=== PATIENT | female | born 1970 | race Caucasian/White ===

== ENCOUNTER 2019-07-19 16:35 | Emergency (ER) | payer OTHER, SELFPAY ==
[2019-07-19 16:50] VITALS: BP 133/103; PULSE 96; RESP 16; TEMP 37.1; O2SAT 98
--- NOTE | 2019-07-19 17:18 | ED.UPPEXIN ---
HPI - Extremity Injury (Upper) General Chief Complaint: Extremity Injury, Upper Stated Complaint: right arm pain Time Seen by Provider: 07/19/19 16:58 Source: patient and RN notes reviewed Mode of arrival: ambulatory Limitations: no limitations History of Present Illness HPI narrative: Patient presents today complaining of right elbow pain since May. History of right-sided carpal tunnel. Denies numbness or tingling in the arm or hand. Pain increases with movement of the elbow. Denies injury. She has tried Tylenol and ibuprofen at home without relief. MD complaint: injury to: right and elbow Related Data Home Medications Medication Instructions Recorded Confirmed amoxicillin 500 mg PO DIRECTED 07/19/19 07/19/19 aspirin 81 mg PO DAILY 07/19/19 07/19/19 atorvastatin 20 mg PO DAILY 07/19/19 07/19/19 cholecalciferol (vitamin D3) 25 mcg PO DAILY 07/19/19 07/19/19 clindamycin HCl 300 mg PO DAILY 07/19/19 07/19/19 hydrocodone-acetaminophen 1 tablet PO DAILY 07/19/19 07/19/19 lisinopril 40 mg PO DAILY 07/19/19 07/19/19 Allergies Allergy/AdvReac Type Severity Reaction Status Date / Time levofloxacin Allergy Mild Swelling Verified 07/19/19 16:58 latex Allergy Unknown Redness of Verified 07/19/19 16:58 Skin Penicillins Allergy Unknown Swelling Verified 07/19/19 16:58 Quinolones AdvReac Mild Swelling Verified 07/19/19 16:58 PAPER TAPE Allergy Mild Hives Uncoded 07/19/19 16:58 Wool. Allergy Mild Swelling Uncoded 07/19/19 16:58 TAPE Allergy Unknown Redness of Uncoded 07/19/19 16:58 Skin Review of Systems Review of Systems: Narrative: CONSTITUTIONAL: Denies body aches, fever, chills, or sweats. EYES: Denies visual changes, redness, or discharge. ENT: Denies rhinorrhea, congestion, sore throat, or otalgia. CARDIOVASCULAR: Denies chest pain, palpitations, or edema. RESPIRATORY: Denies cough or dyspnea. GASTROINTESTINAL: Denies abdominal pain, nausea, vomiting, or diarrhea. GENITOURINARY: Denies dysuria or hematuria. SKIN: Denies rash, itching, or wounds. MUSCULOSKELETAL: Denies back pain, or myalgia.+ Right elbow pain NEUROLOGIC: Denies headache, numbness, tingling, or weakness. PSYCH: Denies depression or anxiety. [facility] Past Medical History Medical History (Updated 07/19/19 @ 18:16 by Isabel Sandoval, PROSTHETICS LAB TECHNICIAN, ) Back pain Diabetes Comments At time of signature, I have reviewed and agree with nursing past medical, surgical, social and family history unless otherwise noted. Please see nursing chart for further information. There is no relevant family history pertinent to the presenting complaint Exam Narrative: Exam Narrative: GENERAL: Well-appearing, well-nourished, and in no acute distress. HEAD: Normocephalic, atraumatic. EYES: EOMI. No redness or drainage. Conjunctivae normal. ENT: Mucous membranes pink and moist. NECK: Normal AROM. CHEST: No respiratory distress. EXTREMITIES: Right elbow: Soft tissue tenderness laterally. No bony tenderness of the elbow. Soft tissue tenderness extends down the forearm. No edema, ecchymosis, or erythema noted. Distal sensation intact. Capillary refill normal. Radial pulse normal. Slightly decreased AROM of the elbow due to pain. SKIN: Warm, dry, no rash. Capillary refill normal. Normal skin turgor. NEURO: No focal deficits. Alert and oriented x3. Gait steady. PSYCH: Normal affect. No signs of depression or anxiety. Course Vital Signs Vital signs: Vital Signs Temperature 98.8 F 07/19/19 16:50 Pulse Rate 96 07/19/19 16:50 Respiratory Rate 16 07/19/19 16:50 Blood Pressure 133/103 H 07/19/19 16:50 Pulse Oximetry 98 07/19/19 16:50 Temperature 98.8 F 07/19/19 16:50 Pulse Rate 96 07/19/19 16:50 Respiratory Rate 16 07/19/19 16:50 Blood Pressure 133/103 H 07/19/19 16:50 Pulse Oximetry 98 07/19/19 16:50 Reviewed. Pt has been instructed to follow up with her PCP regarding her elevated blood pressure today. MDM - Ext
== END 2019-07-19 17:21 | disposition home or self-care (01) ==
PROVIDERS: Emergency Provider Nurse Practitioner
DX: M77.9 Enthesopathy, unspecified (principal); I25.10 Atherosclerotic heart disease of native coronary artery without angina pectoris; I10 Essential (primary) hypertension; J44.9 Chronic obstructive pulmonary disease, unspecified; E11.9 Type 2 diabetes mellitus without complications
CPT/HCPCS: 99213; G0463

== ENCOUNTER 2019-12-24 12:43 | Outpatient (CLI) | payer OTHER, SELFPAY | END 2019-12-24 12:44 | disposition home or self-care (01) | LOC: ANHAUDIO 12:44 | PROVIDERS: Visit Provider Otolaryngology | DX: H69.82 Other specified disorders of Eustachian tube, left ear (principal); H90.3 Sensorineural hearing loss, bilateral | CPT/HCPCS: 92557; 92567 ==

== ENCOUNTER 2020-01-25 14:02 | Outpatient (RCR) | payer OTHER, SELFPAY | END 2020-01-25 23:59 | disposition home or self-care (01) | LOC: ANHAUDIO 14:02 | PROVIDERS: Referring Provider Otolaryngology; Visit Provider Otolaryngology | DX: Z46.1 Encounter for fitting and adjustment of hearing aid (principal) | CPT/HCPCS: V5160; V5261 ==

== ENCOUNTER 2020-02-24 15:23 | Outpatient (CLI) | payer OTHER, SELFPAY ==
--- NOTE | ~2020-02-24 | CT_ITS ---
EXAMINATION: CT sinus wo con DATE: 02/24/2020 15:48 INDICATION: Postnasal drip TECHNIQUE: Computed tomography (CT) of the paranasal sinuses was performed without intravenous contra st. Coronal reconstructions were obtained. Iterative reconstruction technique was employed. The dose- length product was 318.31 mGy-cm. COMPARISON: None FINDINGS: There is prominent leftward bowing of the nasal septum along with some asymmetry to the nasal bones w hich could be developmental or sequela of old trauma. No recent-appearing maxillofacial fractures. Mi ld mucoperiosteal thickening the bilateral ethmoid sinuses. The bilateral frontal, sphenoid and right maxillary sinuses are clear. Bilateral ostiomeatal units are patent. Small defects in the medial wal ls of both maxillary sinuses likely representing change of prior antral window procedures. The orbits are normal. Bilateral mastoid air cells and middle ear cavities are clear. Prominent mucous retentio n cyst at the inferior left maxillary sinus. IMPRESSION: 1. New scattered cysts in the left maxillary sinus and mild mucoperiosteal thickening the bilateral e thmoid sinuses. 2. Leftward deviation of the nasal septum and similar asymmetry to the nasal bones which could be eit her developmental or sequela of old trauma. Reviewed, dictated and finalized at location A. [employer] IMPRESSION: 1. New scattered cysts in the left maxillary sinus and mild mucoperiosteal thic kening the bilateral ethmoid sinuses. 2. Leftward deviation of the nasal septum and similar asymmetry to the nasal ryan basil which could be either developmental or sequela of old trauma.
== END 2020-02-24 15:24 | disposition home or self-care (01) ==
LOC: ANHIMG 15:31
PROVIDERS: Visit Provider Otolaryngology
DX: J32.9 Chronic sinusitis, unspecified (principal); R09.81 Nasal congestion; R09.82 Postnasal drip; J34.2 Deviated nasal septum
CPT/HCPCS: 70486

== ENCOUNTER 2020-03-30 09:05 | Emergency (ER) | payer OTHER, SELFPAY ==
--- NOTE | ~2020-03-30 | XR_ITS ---
XR skull min 4V DATE: 03/30/2020 09:37 INDICATION: Left temporal injury. Headache. TECHNIQUE: 4 views COMPARISON: None FINDINGS: Normal sella turcica. No skull fracture or bone destruction is evident. No abnormal intracr anial calcification. The paranasal sinuses and mastoid air cells appear normally developed and aerate d with the exception of large mucous retention cyst or polyp of the lower left maxillary sinus. Normal alignment of the upper cervical spine (C1-C5). IMPRESSION: No skull fracture Reviewed, dictated and finalized at location B. [employer] INTERN IMPRESSION: No skull fracture
[2020-03-30 09:20] VITALS: BP 140/95; PULSE 111; RESP 18; TEMP 36.7; O2SAT 97
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
== END 2020-03-30 11:10 | disposition home or self-care (01) ==
PROVIDERS: Emergency Provider Emergency Medicine
DX: S09.90XA Unspecified injury of head, initial encounter (principal); E11.9 Type 2 diabetes mellitus without complications; W22.09XA Striking against other stationary object, initial encounter
CPT/HCPCS: 70260; 99283

== ENCOUNTER 2020-05-04 11:20 | Emergency (ER) | payer OTHER, SELFPAY ==
[2020-05-04 11:28] VITALS: BP 136/91; PULSE 88; RESP 16; TEMP 36.4; O2SAT 100
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
[2020-05-04] MEDS: NAPROXEN 500 MG TABLET PO (13:08)
== END 2020-05-04 13:28 | disposition home or self-care (01) ==
PROVIDERS: Emergency Provider Emergency Medicine; PCP Family Medicine
DX: G56.21 Lesion of ulnar nerve, right upper limb (principal); E11.9 Type 2 diabetes mellitus without complications
CPT/HCPCS: 99283; A9270

== ENCOUNTER 2020-05-12 14:09 | Outpatient (CLI) | payer OTHER, SELFPAY ==
--- NOTE | ~2020-05-12 | MM_ITS ---
EXAMINATION: MM screening abel BI w daria HISTORY: Screening mammogram, family history of breast cancer in her mother. TECHNIQUE: Craniocaudal and mediolateral oblique 3-D tomosynthesis images were obtained and synthetic 2-D images were generated. CAD analysis was submitted and interpreted. COMPARISON: No prior mammogram is available for comparison at this institution. BREAST PARENCHYMAL COMPOSITION: There are scattered areas of fibroglandular density. FINDINGS: RIGHT BREAST: There is no evidence of suspicious mass, calcification, or architectural distortion to suggest malignancy. LEFT BREAST: Asymmetry is present in the posterior third of the outer breast on the craniocaudal view . IMPRESSION: 1. Left breast asymmetry on the craniocaudal view which may represent the patient's baseline however no comparison is currently available. 2. Comparison with prior mammograms is necessary. BI-RADS Category 0: Incomplete: Needs comparison with prior mammograms. Reviewed, dictated and finalized at location A. IMPRESSION: 1. Left breast asymmetry on the craniocaudal view which may represent the patie nt's baseline however no comparison is currently available. 2. Comparison with prior mammograms is necessary. BI-RADS Category 0: Incomplete: Needs comparison with prior mammograms.
== END 2020-05-12 14:10 | disposition home or self-care (01) ==
LOC: ANHIMG 14:13
PROVIDERS: PCP Family Medicine; Visit Provider Nurse Practitioner
DX: Z12.31 Encounter for screening mammogram for malignant neoplasm of breast (principal); R92.8 Other abnormal and inconclusive findings on diagnostic imaging of breast
CPT/HCPCS: 77063; 77067

== ENCOUNTER 2020-10-05 12:41 | Emergency (ER) | payer OTHER, SELFPAY ==
[2020-10-05 13:02] VITALS: BP 108/76; PULSE 88; RESP 20; TEMP 36.8; O2SAT 99
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
== END 2020-10-05 14:03 | disposition home or self-care (01) ==
PROVIDERS: Emergency Provider Nurse Practitioner; PCP Nurse Practitioner
DX: H66.006 Acute suppurative otitis media without spontaneous rupture of ear drum, recurrent, bilateral (principal); E11.9 Type 2 diabetes mellitus without complications; K21.9 Gastro-esophageal reflux disease without esophagitis; E78.00 Pure hypercholesterolemia, unspecified; J45.909 Unspecified asthma, uncomplicated
CPT/HCPCS: 99213; G0463

== ENCOUNTER 2020-10-11 16:57 | Emergency (ER) | payer OTHER, SELFPAY ==
--- NOTE | ~2020-10-11 | XR_ITS ---
EXAMINATION: XR toe 2nd LT min 2V DATE: 10/11/2020 18:21 INDICATION: Left second toe pain. TECHNIQUE: 4 views of left second toe were obtained. COMPARISON: Left foot radiographs 09/09/2010 FINDINGS: There is moderate hallux valgus. No fracture. There is mild osteoarthritis of first and sec ond metatarsophalangeal joints and first interphalangeal joint. IMPRESSION: 1. Mild polyarticular osteoarthritis. 2. Moderate hallux valgus. Reviewed, dictated and finalized at location A.
[2020-10-11 17:07] VITALS: BP 144/89; PULSE 90; RESP 16; TEMP 36.8; O2SAT 98
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
== END 2020-10-11 18:43 | disposition home or self-care (01) ==
PROVIDERS: Emergency Provider Nurse Practitioner; PCP Podiatrist Foot & Ankle Surgery
DX: S93.505A Unspecified sprain of left lesser toe(s), initial encounter (principal); S96.912A Strain of unspecified muscle and tendon at ankle and foot level, left foot, initial encounter; V49.9XXA Car occupant (driver) (passenger) injured in unspecified traffic accident, initial encounter; E11.9 Type 2 diabetes mellitus without complications; K21.9 Gastro-esophageal reflux disease without esophagitis
CPT/HCPCS: 73660; 99213; G0463

== ENCOUNTER 2020-10-30 16:55 | Emergency (ER) | payer OTHER, SELFPAY ==
[2020-10-30 17:16] VITALS: BP 115/83; PULSE 98; RESP 18; TEMP 36.8; O2SAT 98
== END 2020-10-30 18:25 | disposition left against medical advice (07) ==
LOC: EXPCOLL 17:00
PROVIDERS: Emergency Provider Registered Nurse; PCP Family Medicine
DX: Z53.21 Procedure and treatment not carried out due to patient leaving prior to being seen by health care provider (principal)
CPT/HCPCS: 99199

== ENCOUNTER 2021-03-07 16:44 | Emergency (ER) | payer OTHER, SELFPAY ==
--- NOTE | 2021-03-07 16:47 | ED.EAR ---
HPI - Ear Problem General Chief complaint: Ear Stated complaint: jerrod ear pain Time Seen by Provider: 03/07/21 16:57 Source: patient and RN notes reviewed Mode of arrival: ambulatory Limitations: no limitations History of Present Illness HPI Narrative: 50-year-old female presents with concern for bilateral ear pain. Reports history of problems with her ears, she is followed by ENT. Reports over several days the cold wind has caused her to have ear pain. She reports only mild nasal congestion and rhinorrhea which is chronic. She reports she had a negative Covid test. She denies fever, hearing changes. MD Complaint: ear pain Related Data Home Medications Medication Instructions Recorded Confirmed atorvastatin 20 mg PO DAILY 07/19/19 03/07/21 cholecalciferol (vitamin D3) 25 mcg PO DAILY 07/19/19 03/07/21 lisinopril 40 mg PO DAILY 07/19/19 03/07/21 Allergies Allergy/AdvReac Type Severity Reaction Status Date / Time meloxicam Allergy Intermediate mouth dry Verified 03/07/21 16:47 and stomach pain metformin Allergy Intermediate dry mouth Verified 03/07/21 16:47 and stomach pain levofloxacin Allergy Mild Swelling Verified 03/07/21 16:47 latex Allergy Unknown Redness of Verified 03/07/21 16:47 Skin Penicillins Allergy Unknown Swelling Verified 03/07/21 16:47 Quinolones AdvReac Mild Swelling Verified 03/07/21 16:47 PAPER TAPE Allergy Mild Hives Uncoded 03/07/21 16:47 Wool. Allergy Mild Swelling Uncoded 03/07/21 16:47 TAPE Allergy Unknown Redness of Uncoded 03/07/21 16:47 Skin Review of Systems Review of Systems: CONSTITUTIONAL: Denies malaise, chills, sweats, or fever. EYES: Denies visual changes, redness, or discharge. ENT: Reports mild rhinorrhea, congestion. Denies sinus pain, and sore throat. Reports bilateral ear pain CARDIOVASCULAR: Denies chest pain, palpitations, or edema. RESPIRATORY: Denies cough. Denies dyspnea. GASTROINTESTINAL: Denies abdominal pain, nausea, vomiting, diarrhea SKIN: Denies rash or itching. MUSCULOSKELETAL: Denies myalgia. NEUROLOGIC: Denies headache. All systems reviewed & are unremarkable except as noted in HPI and below PMFSH Past Medical History Medical History Back pain Diabetes GERD (gastroesophageal reflux disease) Family History Family History Other Diabetes mellitus Social History Social History Smoking status: Never smoker Second hand tobacco smoke exposure: No Alcohol intake: former Substance use: never Gender identity (if verbalized by the patient): Female Comments At time of signature, agree with nursing past medical, surgical, social and family history. There is no relevant family history pertinent to the presenting complaint Exam Narrative: GENERAL: Well-appearing, well-nourished, and in no acute distress. HEAD: Normocephalic EYES: PERRLA, conjunctivae clear ENT: Nares clear. Mucous membranes moist. TM pearly zelaya with dull light reflex bilaterally; mild tragal tenderness bilaterally without purulent drainage. Oropharynx not erythematous without lesions. Tonsils not enlarged and without exudate, no drooling, no hoarseness, no trismus, uvula midline. NECK: Supple. No lymphadenopathy CHEST: Clear to auscultation, breath sounds equal. No wheezing, rhonchi, rales, or stridor. No respiratory distress, speaks in full sentences. HEART: Regular rate and rhythm. No murmur heard. SKIN: Warm, dry, no rash. NEURO: Alert and oriented x3. PSYCH: Normal mood and affect Course Course Emergency Course: Patient is aware of diagnosis, understands and agrees to treatment plan. Anticipatory guidance given. Patient agrees to follow-up as directed and is aware of reasons to seek care at the emergency department. Portions of this record may have been created with
[2021-03-07 16:57] VITALS: BP 133/90; PULSE 87; RESP 16; TEMP 36.6; O2SAT 98
== END 2021-03-07 17:10 | disposition home or self-care (01) ==
PROVIDERS: Emergency Provider Nurse Practitioner
DX: H60.503 Unspecified acute noninfective otitis externa, bilateral (principal); E11.9 Type 2 diabetes mellitus without complications; K21.9 Gastro-esophageal reflux disease without esophagitis
CPT/HCPCS: 99213; G0463

== ENCOUNTER 2021-07-23 13:15 | Emergency (ER) | payer OTHER, SELFPAY ==
--- NOTE | ~2021-07-23 | XR_ITS ---
XR thoracic spine 3V DATE: 07/23/2021 14:04 INDICATION: Injury, pain TECHNIQUE: AP and lateral views, swimmer's projection COMPARISON: None FINDINGS: No fracture or dislocation or bone destruction. The thoracic pedicles are intact. No parasp inal soft tissue thickening. IMPRESSION: Negative Reviewed, dictated and finalized at location A. IMPRESSION: Negative
[2021-07-23 13:27] VITALS: BP 135/79; PULSE 96; RESP 16; TEMP 37.1; O2SAT 99
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
== END 2021-07-23 14:37 | disposition home or self-care (01) ==
PROVIDERS: Emergency Provider Nurse Practitioner Family
DX: S29.012A Strain of muscle and tendon of back wall of thorax, initial encounter (principal); W18.40XA Slipping, tripping and stumbling without falling, unspecified, initial encounter; E11.9 Type 2 diabetes mellitus without complications; K21.9 Gastro-esophageal reflux disease without esophagitis
CPT/HCPCS: 72072; 99213; G0463

== ENCOUNTER 2021-08-09 12:12 | Emergency (ER) | payer OTHER, SELFPAY ==
--- NOTE | 2021-08-09 12:19 | ED.URI ---
HPI - URI/Sore Throat General Chief Complaint: Upper Respiratory Infection Stated Complaint: sinus pressure,ear pressure Time Seen by Provider: 08/09/21 12:20 Source: patient and RN notes reviewed Mode of arrival: ambulatory Limitations: no limitations History of Present Illness HPI Narrative: 51-year-old female presents with concern for on and off sinus congestion, pressure, drainage for more than 2 weeks, 1-1/2-week history of ear pain and pressure. Reports she is taken multiple [id number] cold and flu medicines without relief of symptoms. Reports she missed work today. She denies fever, body aches, chills, sweats, cough, shortness of breath. MD elicited complaint: rhinorrhea, nasal congestion and other (Ear fullness) Related Data Home Medications Medication Instructions Recorded Confirmed atorvastatin 20 mg tablet 20 mg PO DAILY 07/19/19 07/23/21 cholecalciferol (vitamin D3) 25 25 mcg PO DAILY 07/19/19 07/23/21 mcg (1,000 unit) tablet lisinopril 40 mg tablet 40 mg PO DAILY 07/19/19 07/23/21 amitriptyline 25 mg tablet 1 tablet PO HS 07/23/21 07/23/21 ammonium lactate 12 % lotion 1 ea topical DAILY 07/23/21 07/23/21 furosemide 20 mg tablet 1 tablet PO DAILY 07/23/21 07/23/21 nateglinide 120 mg tablet 1 tablet PO TID 07/23/21 07/23/21 Allergies Allergy/AdvReac Type Severity Reaction Status Date / Time meloxicam Allergy Intermediate mouth dry Verified 07/23/21 13:38 and stomach pain metformin Allergy Intermediate dry mouth Verified 07/23/21 13:38 and stomach pain levofloxacin Allergy Mild Swelling Verified 07/23/21 13:38 latex Allergy Unknown Redness of Verified 07/23/21 13:38 Skin Penicillins Allergy Unknown Swelling Verified 07/23/21 13:38 Quinolones AdvReac Mild Swelling Verified 07/23/21 13:38 PAPER TAPE Allergy Mild Hives Uncoded 07/23/21 13:38 Wool. Allergy Mild Swelling Uncoded 07/23/21 13:38 TAPE Allergy Unknown Redness of Uncoded 07/23/21 13:38 Skin Review of Systems Review of Systems: CONSTITUTIONAL: Denies malaise, chills, sweats, or fever. EYES: Denies visual changes, redness, or discharge. ENT: Reports rhinorrhea, congestion, sinus pain, otalgia CARDIOVASCULAR: Denies chest pain, palpitations, or edema. RESPIRATORY: Denies cough. Denies dyspnea. GASTROINTESTINAL: Denies abdominal pain, nausea, vomiting, diarrhea SKIN: Denies rash or itching. MUSCULOSKELETAL: Denies myalgia. NEUROLOGIC: Denies headache. All systems reviewed & are unremarkable except as noted in HPI and below PMFSH Past Medical History Medical History Back pain Diabetes GERD (gastroesophageal reflux disease) Family History Family History Other Diabetes mellitus Social History Social History Smoking status: Never smoker Second hand tobacco smoke exposure: No Alcohol intake: former Substance use: never Gender identity (if verbalized by the patient): Female Comments At time of signature, agree with nursing past medical, surgical, social and family history. There is no relevant family history pertinent to the presenting complaint Exam Narrative: GENERAL: Well-appearing, well-nourished, and in no acute distress. HEAD: Normocephalic EYES: PERRLA, conjunctivae clear ENT: Nares clear, turbinates edematous and erythematous, sinus tenderness. Mucous membranes moist. TM pearly zelaya with dull light reflex bilaterally; left tragal tenderness with EAC erythema and edema Oropharynx not erythematous without lesions. Tonsils not enlarged and without exudate, no drooling, no hoarseness, no trismus, uvula midline. NECK: Supple. No lymphadenopathy CHEST: Clear to auscultation, breath sounds equal. No wheezing, rhonchi, rales, or stridor. No respiratory distress, speaks in full sentences. HEART: Regular rate and rhythm
[2021-08-09 12:21] VITALS: BP 133/85; PULSE 88; RESP 16; TEMP 36.7; O2SAT 97
== END 2021-08-09 12:38 | disposition home or self-care (01) ==
PROVIDERS: Emergency Provider Nurse Practitioner; PCP Family Medicine
DX: J01.90 Acute sinusitis, unspecified (principal); H60.92 Unspecified otitis externa, left ear; E11.9 Type 2 diabetes mellitus without complications; K21.9 Gastro-esophageal reflux disease without esophagitis
CPT/HCPCS: 99213; G0463

== ENCOUNTER 2021-09-06 12:54 | Emergency (ER) | payer OTHER, SELFPAY ==
--- NOTE | ~2021-09-06 | XR_ITS ---
EXAMINATION: XR shoulder RT min 2V DATE: 09/06/2021 13:38 INDICATION: Shoulder pain, numbness and tingling TECHNIQUE: AP internally and externally rotated, AP oblique externally rotated and transscapular Y vi ews of the right shoulder were obtained. COMPARISON: None FINDINGS: Normal alignment. No fracture. Glenohumeral joint is normal. Mild acromioclavicular osteoarthritis. Small calcified nodule at the right apex consistent with old granulomatous disease. Soft tissues are unremarkable. IMPRESSION: Mild right acromioclavicular osteoarthritis. Reviewed, dictated and finalized at location A.
--- NOTE | ~2021-09-06 | US_ITS ---
EXAMINATION: US venous doppler UE RT DATE: 09/06/2021 14:04 INDICATION: Right arm pain and swelling TECHNIQUE: Valdes scale images with and without compression and Doppler images of the right upper extre mity veins were obtained. COMPARISON: None. FINDINGS: The right internal jugular vein, subclavian vein, axillary vein, brachial veins, basilic vein, cephal ic vein, radial vein, and ulnar vein are patent. IMPRESSION: 1. Patent right upper extremity veins. No evidence of deep venous thrombosis. Reviewed, dictated and finalized at location A.
[2021-09-06 12:55] VITALS: BP 131/99; PULSE 92; RESP 16; TEMP 36.5; O2SAT 100
--- NOTE | 2021-09-06 13:56 | ED.UPPEXIN ---
HPI - Extremity Injury (Upper) General Chief Complaint: Extremity Injury, Upper Stated Complaint: Right shoulder and arm pain x 3-4 days Time Seen by Provider: 09/06/21 13:00 History of Present Illness HPI narrative: Patient is a 51-year-old female who presents ER with right arm and shoulder discomfort. She reports she injured her shoulder about 3 years ago and has been seen by her PCP and by an orthopedic surgeons office. And she denies having imaging. She reports occasionally she will get pain down her right arm that is worsened over the last 3 to 4 days. No known injury at this time. She feels like the pain is worse when she reaches forward to grab something. If she tries to lift a soda out of the console of her car causes her discomfort. It gives her tingling in the tips of her fingers. She also felt pulling on the back of her forearm and her shoulder. No neck pain. No chest pain or shortness of breath. No exertional component to her discomfort. Has not tried any pain medication. She does note that she had some swelling to her right hand this morning that has since resolved which was new. Related Data Home Medications Medication Instructions Recorded Confirmed atorvastatin 20 mg tablet 20 mg PO DAILY 07/19/19 07/23/21 cholecalciferol (vitamin D3) 25 25 mcg PO DAILY 07/19/19 07/23/21 mcg (1,000 unit) tablet lisinopril 40 mg tablet 40 mg PO DAILY 07/19/19 07/23/21 amitriptyline 25 mg tablet 1 tablet PO HS 07/23/21 07/23/21 ammonium lactate 12 % lotion 1 ea topical DAILY 07/23/21 07/23/21 furosemide 20 mg tablet 1 tablet PO DAILY 07/23/21 07/23/21 nateglinide 120 mg tablet 1 tablet PO TID 07/23/21 07/23/21 Allergies Allergy/AdvReac Type Severity Reaction Status Date / Time meloxicam Allergy Intermediate mouth dry Verified 09/06/21 13:17 and stomach pain metformin Allergy Intermediate dry mouth Verified 09/06/21 13:17 and stomach pain levofloxacin Allergy Mild Swelling Verified 09/06/21 13:17 latex Allergy Unknown Redness of Verified 09/06/21 13:17 Skin Penicillins Allergy Unknown Swelling Verified 09/06/21 13:17 Quinolones AdvReac Mild Swelling Verified 09/06/21 13:17 PAPER TAPE Allergy Mild Hives Uncoded 09/06/21 13:17 Wool. Allergy Mild Swelling Uncoded 09/06/21 13:17 TAPE Allergy Unknown Redness of Uncoded 09/06/21 13:17 Skin Review of Systems Review of Systems: All systems reviewed & are unremarkable except as noted in HPI and below Constitutional: Constitutional: Denies chills and Denies fever(s) Cardiovascular: Cardiovascular: Denies chest pain, Denies rapid heart rate and Denies radiating jaw, neck or arm pain Respiratory: Respiratory: Denies cough and Denies dyspnea Musculoskeletal: Musculoskeletal: Denies joint swelling Neurologic: Denies focal weakness and Denies numbness Comments: Tingling of fingertips right arm. [facility] Past Medical History Medical History Back pain Diabetes GERD (gastroesophageal reflux disease) Family History Family History Other Diabetes mellitus Social History Social History Smoking status: Never smoker Second hand tobacco smoke exposure: No Alcohol intake: former Substance use: never Gender identity (if verbalized by the patient): Female Exam Narrative: GENERAL: Well-appearing, well-nourished, and in no acute distress. HEAD: Normocephalic, atraumatic. CHEST: Clear to auscultation. No respiratory distress. HEART: Regular rate and rhythm. Normal peripheral pulses. EXTREMITIES: Focused exam of the right upper extremity reveals normal internal and external rotation. Patient does have discomfort at the right shoulder with internal rotation and placing arm to touch of the spine which range of motion is preserved. SKIN: Warm, dry, no rash.
== END 2021-09-06 14:47 | disposition home or self-care (01) ==
PROVIDERS: Emergency Provider Emergency Medicine; PCP Family Medicine
DX: M19.011 Primary osteoarthritis, right shoulder (principal); E11.9 Type 2 diabetes mellitus without complications; K21.9 Gastro-esophageal reflux disease without esophagitis
CPT/HCPCS: 73030; 93971; 99284

== ENCOUNTER 2021-11-07 11:16 | Emergency (ER) | payer OTHER, SELFPAY ==
[2021-11-07 11:26] VITALS: BP 138/79; PULSE 98; RESP 16; TEMP 36.7; O2SAT 99
--- NOTE | 2021-11-07 11:35 | ED.URI ---
HPI - URI/Sore Throat General Chief Complaint: Upper Respiratory Infection Stated Complaint: uri Time Seen by Provider: 11/07/21 11:30 Source: patient Mode of arrival: ambulatory Limitations: no limitations History of Present Illness HPI Narrative: Ms. Henriquez is a 51-year-old female patient presenting to the clinic today with complaints of sinus pressure and ear pain x4-5 days. She denies any fever or chills. She does have nasal congestion. She denies any known exposure to a COVID, flu, or strep MD elicited complaint: sore throat and nasal congestion Related Data Home Medications Medication Instructions Recorded Confirmed atorvastatin 20 mg tablet 20 mg PO DAILY 07/19/19 11/07/21 cholecalciferol (vitamin D3) 25 25 mcg PO DAILY 07/19/19 11/07/21 mcg (1,000 unit) tablet lisinopril 40 mg tablet 40 mg PO DAILY 07/19/19 11/07/21 amitriptyline 25 mg tablet 1 tablet PO HS 07/23/21 11/07/21 ammonium lactate 12 % lotion 1 ea topical DAILY 07/23/21 11/07/21 furosemide 20 mg tablet 1 tablet PO DAILY 07/23/21 11/07/21 nateglinide 120 mg tablet 1 tablet PO TID 07/23/21 11/07/21 Allergies Allergy/AdvReac Type Severity Reaction Status Date / Time meloxicam Allergy Intermediate mouth dry Verified 11/07/21 11:18 and stomach pain metformin Allergy Intermediate dry mouth Verified 11/07/21 11:18 and stomach pain levofloxacin Allergy Mild Swelling Verified 11/07/21 11:18 latex Allergy Unknown Redness of Verified 11/07/21 11:18 Skin Penicillins Allergy Unknown Swelling Verified 11/07/21 11:18 Quinolones AdvReac Mild Swelling Verified 11/07/21 11:18 PAPER TAPE Allergy Mild Hives Uncoded 11/07/21 11:18 Wool. Allergy Mild Swelling Uncoded 11/07/21 11:18 TAPE Allergy Unknown Redness of Uncoded 11/07/21 11:18 Skin Review of Systems Review of Systems: Pertinent positives per HPI. Patient denies any fever, chills, rash, visual changes, dizziness, shortness of breath, chest pain, palpitations, nausea, vomiting, diarrhea, constipation, abdominal pain, or any urinary issues. [facility] Past Medical History Medical History Back pain Diabetes GERD (gastroesophageal reflux disease) Family History Family History Other Diabetes mellitus Social History Social History Smoking status: Never smoker Second hand tobacco smoke exposure: No Alcohol intake: former Substance use: never Gender identity (if verbalized by the patient): Female Comments At the time of my signature, I reviewed and agree with the nursing past medical, surgical, social, and family history. There is no relevant family history pertinent to the patient complaint. Exam Narrative: General: Well-developed, well nourished, in no apparent distress Head: Normocephalic, atraumatic Eyes: Pupils equally round and reactive to light bilaterally, EOM intact, sclera and conjunctive clear, no discharge, lids normal Ears: TMs intact and clear, ear canals clear, no drainage, grossly hearing normal. Nose: Nares patent, no discharge, no inflammation, no sinus tenderness. Mouth: Oral pharynx without lesions or masses, good dentition, MMM. Neck: Supple, trachea midline, no enlargement of anterior or posterior cervical nodes, no thyroid masses or goiter palpable. Cardio: Regular rate and rhythm, s1 and s2 normal, no murmur appreciated. Resp: Clear to auscultation bilaterally, no rhonchi, rales, wheezing or rubs Course Course Emergency Course: Portions of this record may have been created with voice recognition software. Level of Care: Express Care Visit Vital Signs Vital signs: Vital Signs Temperature 36.7 C 11/07/21 11:26 Pulse Rate 98 11/07/21 11:26 Respiratory Rate 16 11/07/21 11:26 Blood Pressure 138/79 11/07/21 11:26 Pulse Oximetry 99
== END 2021-11-07 11:43 | disposition home or self-care (01) ==
PROVIDERS: Emergency Provider Nurse Practitioner Family
DX: J06.9 Acute upper respiratory infection, unspecified (principal); R09.82 Postnasal drip; H69.80 Other specified disorders of Eustachian tube, unspecified ear; E11.9 Type 2 diabetes mellitus without complications; K21.9 Gastro-esophageal reflux disease without esophagitis
CPT/HCPCS: 99213; G0463

== ENCOUNTER 2021-11-21 12:25 | Emergency (ER) | payer OTHER, SELFPAY ==
[2021-11-21 12:38] VITALS: BP 125/71; PULSE 76; RESP 16; TEMP 36.4; O2SAT 100
--- NOTE | 2021-11-21 12:53 | ED.BACK ---
HPI - Back Pain/Injury General Chief Complaint: Back Pain/Injury Stated Complaint: Right Shoulder,Back Pain Time Seen by Provider: 11/21/21 12:53 Source: patient Mode of arrival: ambulatory Limitations: no limitations History of Present Illness HPI Narrative: 51-year-old female presented for complaint of right upper back pain after stretching today. States the pain was sharp and sudden when she stretched the arms back and rotated to the right. She took muscle relaxer and ibuprofen and naproxen without relief. States the pain radiates down the right back to the left lower back and hip. Denies difficulty ambulating, numbness, tingling or weakness of the extremities. Denies decreased range of motion to the upper extremities. Related Data Home Medications Medication Instructions Recorded Confirmed atorvastatin 20 mg tablet 20 mg PO DAILY 07/19/19 11/07/21 cholecalciferol (vitamin D3) 25 25 mcg PO DAILY 07/19/19 11/07/21 mcg (1,000 unit) tablet lisinopril 40 mg tablet 40 mg PO DAILY 07/19/19 11/07/21 furosemide 20 mg tablet 1 tablet PO DAILY 07/23/21 11/07/21 nateglinide 120 mg tablet 1 tablet PO TID 07/23/21 11/07/21 naproxen 500 mg tablet,delayed mg PO 11/21/21 release (EC-Naproxen) [id number] 3.5 drp 11/21/21 mg/mL-10,000 unit/mL-0.1% eye drops Allergies Allergy/AdvReac Type Severity Reaction Status Date / Time meloxicam Allergy Intermediate mouth dry Verified 11/21/21 12:34 and stomach pain metformin Allergy Intermediate dry mouth Verified 11/21/21 12:34 and stomach pain levofloxacin Allergy Mild Swelling Verified 11/21/21 12:34 latex Allergy Unknown Redness of Verified 11/21/21 12:34 Skin Penicillins Allergy Unknown Swelling Verified 11/21/21 12:34 Quinolones AdvReac Mild Swelling Verified 11/21/21 12:34 PAPER TAPE Allergy Mild Hives Uncoded 11/21/21 12:34 Wool. Allergy Mild Swelling Uncoded 11/21/21 12:34 TAPE Allergy Unknown Redness of Uncoded 11/21/21 12:34 Skin Review of Systems Review of Systems: CONSTITUTIONAL: Denies body aches, fever, chills EYES: Denies visual changes CARDIOVASCULAR: Denies chest pain, palpitations, or edema. RESPIRATORY: Denies cough or dyspnea. GASTROINTESTINAL: Denies abdominal pain, nausea, vomiting, or diarrhea. SKIN: Denies rash, itching, or wounds. MUSCULOSKELETAL: reports back pain NEUROLOGIC: Denies headache, numbness, tingling, or weakness. All systems reviewed & are unremarkable except as noted in HPI and below PMFSH Past Medical History Medical History Back pain Diabetes GERD (gastroesophageal reflux disease) Family History Family History Other Diabetes mellitus Social History Social History Smoking status: Never smoker Second hand tobacco smoke exposure: No Alcohol intake: former Substance use: never Gender identity (if verbalized by the patient): Female Comments At time of signature, I have reviewed and agree with nursing past medical, surgical, social and family history unless otherwise noted. Please see nursing chart for further information. There is no relevant family history pertinent to the presenting complaint Exam Narrative: GENERAL: Well-appearing EYES: conjunctivae clear NECK: full ROM CHEST: Speaks in full sentences. No respiratory distress. HEART: Regular rate and rhythm. Normal and equal peripheral pulses. MUSC: No Vertebral point tenderness. Subjective tenderness to right scapula with light palpation; BLEs with normal strength and sensation. Normal range of motion to BUEs and BLEs; Subjective pain with movement to RUE. No open wounds or rash. Pulse palpable and equal bilaterally, skin warm, dry, pink. Capillary refill less than 3 seconds. Gait steady. SKIN: Warm, dry, no rash. NEURO: Alert and orient
== END 2021-11-21 13:17 | disposition home or self-care (01) ==
PROVIDERS: Emergency Provider Nurse Practitioner Family; PCP Family Medicine
DX: M54.6 Pain in thoracic spine (principal); M25.552 Pain in left hip; E11.9 Type 2 diabetes mellitus without complications; K21.9 Gastro-esophageal reflux disease without esophagitis
CPT/HCPCS: 99213; G0463

== ENCOUNTER 2022-01-01 09:40 | Emergency (ER) | payer OTHER, SELFPAY ==
--- NOTE | 2022-01-01 10:48 | ED.URI ---
HPI - URI/Sore Throat General Chief Complaint: Upper Respiratory Infection Stated Complaint: Sinus Time Seen by Provider: 01/01/22 10:35 Source: patient Mode of arrival: ambulatory Limitations: no limitations History of Present Illness HPI Narrative: Ms. Henriquez is a 51-year-old female patient presenting to clinic today with complaints of sinus pressure, runny nose, coughing, and mild sore throat. She reports that the symptoms have been ongoing for some about 7 and half weeks. She reports that she is having some yellow nasal discharge. She denies any fever or chills MD elicited complaint: sore throat and nasal congestion Related Data Home Medications Medication Instructions Recorded Confirmed atorvastatin 20 mg tablet 20 mg PO DAILY 07/19/19 11/07/21 cholecalciferol (vitamin D3) 25 25 mcg PO DAILY 07/19/19 11/07/21 mcg (1,000 unit) tablet lisinopril 40 mg tablet 40 mg PO DAILY 07/19/19 11/07/21 furosemide 20 mg tablet 1 tablet PO DAILY 07/23/21 11/07/21 nateglinide 120 mg tablet 1 tablet PO TID 07/23/21 11/07/21 naproxen 500 mg tablet,delayed mg PO 11/21/21 release (EC-Naproxen) [id number] 3.5 drp 11/21/21 mg/mL-10,000 unit/mL-0.1% eye drops Allergies Allergy/AdvReac Type Severity Reaction Status Date / Time meloxicam Allergy Intermediate mouth dry Verified 11/21/21 12:34 and stomach pain metformin Allergy Intermediate dry mouth Verified 11/21/21 12:34 and stomach pain levofloxacin Allergy Mild Swelling Verified 11/21/21 12:34 latex Allergy Unknown Redness of Verified 11/21/21 12:34 Skin Penicillins Allergy Unknown Swelling Verified 11/21/21 12:34 Quinolones AdvReac Mild Swelling Verified 11/21/21 12:34 PAPER TAPE Allergy Mild Hives Uncoded 11/21/21 12:34 Wool. Allergy Mild Swelling Uncoded 11/21/21 12:34 TAPE Allergy Unknown Redness of Uncoded 11/21/21 12:34 Skin Review of Systems Review of Systems: Pertinent positives per HPI. Patient denies any fever, chills, rash, headache, visual changes, dizziness, cough, shortness of breath, chest pain, palpitations, nausea, vomiting, diarrhea, constipation, abdominal pain, or any urinary issues. [facility] Past Medical History Medical History Back pain Diabetes GERD (gastroesophageal reflux disease) Family History Family History Other Diabetes mellitus Social History Social History Smoking status: Never smoker Second hand tobacco smoke exposure: No Alcohol intake: former Substance use: never Gender identity (if verbalized by the patient): Female Comments At the time of my signature, I reviewed and agree with the nursing past medical, surgical, social, and family history. There is no relevant family history pertinent to the patient complaint. Exam Narrative: General: Well-developed, well nourished, in no apparent distress Head: Normocephalic, atraumatic Eyes: Pupils equally round and reactive to light bilaterally, EOM intact, sclera and conjunctive clear, no discharge, lids normal Ears: TMs intact and dull, ear canals clear, no drainage, grossly hearing normal. Nose: Nares patent, yellow nasal discharge, severe inflammation, maxillary and frontal sinus tenderness. Mouth: Oral pharynx without lesions or masses, good dentition, MMM. Neck: Supple, trachea midline, no enlargement of anterior or posterior cervical nodes, no thyroid masses or goiter palpable. Cardio: Regular rate and rhythm, s1 and s2 normal, no murmur appreciated. Resp: Clear to auscultation bilaterally, no rhonchi, rales, wheezing or rubs Course Course Emergency Course: Portions of this record may have been created with voice recognition software. Level of Care: Express Care Visit Vital Signs Vital signs: Vital signs revi
[2022-01-01 10:52] VITALS: BP 141/79; PULSE 87; RESP 18; TEMP 36.4; O2SAT 99
--- NOTE | 2022-01-01 11:04 | PC.NURSE ---
stated is waiting for pmd to ok all meds. at pharmacy. said is normally suppose to take meds. per list, but pharmacy has been unable to contact pmd for refills and pt is trying to make appt with pmd for f/u. is not currently taking any prescribed meds. at this time. is aware to f/u in er for any persistant or worsening sx. to keep check on bs levels.
== END 2022-01-01 10:55 | disposition home or self-care (01) ==
PROVIDERS: Emergency Provider Nurse Practitioner Family; PCP Otolaryngology
DX: J01.90 Acute sinusitis, unspecified (principal); B96.89 Other specified bacterial agents as the cause of diseases classified elsewhere; E11.9 Type 2 diabetes mellitus without complications
CPT/HCPCS: 99213; G0463

== ENCOUNTER 2022-03-07 12:02 | Emergency (ER) | payer OTHER, SELFPAY ==
--- NOTE | 2022-03-07 12:08 | ED.DENTAL ---
HPI - Dental/Oral General Chief complaint: Dental/Oral Stated complaint: Dental Pain Time Seen by Provider: 03/07/22 12:36 Mode of arrival: ambulatory Limitations: no limitations History of Present Illness HPI Narrative: 51-year-old female presents concern for left lower dental pain that is causing her left ear pain. She also reports pain to the top front tooth. She reports it feels like there is a crack in the top front tooth. She reports the left lower dental pain has been going on for several days, she has tried ?everything? without relief. She denies fever, trouble swallowing MD Complaint: tooth pain Related Data Home Medications Medication Instructions Recorded Confirmed atorvastatin 20 mg tablet 20 mg PO DAILY 07/19/19 03/07/22 cholecalciferol (vitamin D3) 25 25 mcg PO DAILY 07/19/19 03/07/22 mcg (1,000 unit) tablet lisinopril 40 mg tablet 40 mg PO DAILY 07/19/19 03/07/22 furosemide 20 mg tablet 1 tablet PO DAILY 07/23/21 03/07/22 nateglinide 120 mg tablet 1 tablet PO TID 07/23/21 03/07/22 Allergies Allergy/AdvReac Type Severity Reaction Status Date / Time meloxicam Allergy Intermediate mouth dry Verified 03/07/22 12:04 and stomach pain metformin Allergy Intermediate dry mouth Verified 03/07/22 12:04 and stomach pain levofloxacin Allergy Mild Swelling Verified 03/07/22 12:04 latex Allergy Unknown Redness of Verified 03/07/22 12:04 Skin Penicillins Allergy Unknown Swelling Verified 03/07/22 12:04 Quinolones AdvReac Mild Swelling Verified 03/07/22 12:04 PAPER TAPE Allergy Mild Hives Uncoded 03/07/22 12:04 Wool. Allergy Mild Swelling Uncoded 03/07/22 12:04 TAPE Allergy Unknown Redness of Uncoded 03/07/22 12:04 Skin Review of Systems Review of Systems: CONSTITUTIONAL: Denies malaise, chills, sweats, or fever. EYES: Denies visual changes ENT: Denies rhinorrhea, congestion, sinus pain, or sore throat. Reports left lower and top front dental pain. Reports left ear pain CARDIOVASCULAR: Denies chest pain, palpitations RESPIRATORY: Denies cough or dyspnea. SKIN: Denies rash or itching. MUSCULOSKELETAL: Denies myalgia. NEUROLOGIC: Denies numbness, weakness, or headache. All systems reviewed & are unremarkable except as noted in HPI and below PMFSH Past Medical History Medical History Back pain Diabetes GERD (gastroesophageal reflux disease) Family History Family History Other Diabetes mellitus Social History Social History Smoking status: Never smoker Second hand tobacco smoke exposure: No Alcohol intake: former Substance use: never Gender identity (if verbalized by the patient): Female Comments At time of signature, agree with nursing past medical, surgical, social and family history. There is no relevant family history pertinent to the presenting complaint Exam Narrative: GENERAL: Well-appearing, well-nourished, and in no acute distress. HEAD: Normocephalic, atraumatic. EYES: PERRLA, sclera clear ENT: Nares clear, turbinates pink, no rhinorrhea or epistaxis. Mucous membranes moist. TM pearly zelaya with sharp light reflex bilaterally; no tragal tenderness. Oropharynx without erythema or lesions. Tonsils not enlarged and without exudate. Several Missing teeth, broken teeth, caries without any visible abscesses. Left jaw tenderness NECK: Supple. No lymphadenopathy. CHEST: No respiratory distress. Speaks in full sentences. HEART: Regular rate and rhythm. SKIN: Warm, dry, no visible rash. NEURO: Alert and oriented x3. PSYCH: Normal mood and affect Course Course Emergency Course: Patient is aware of diagnosis, understands and agrees to treatment plan. Anticipatory guidance given. Patient agrees to follow-up as directed and is aware of reasons to seek care a
[2022-03-07 12:10] VITALS: BP 123/92; PULSE 96; RESP 16; TEMP 36.4; O2SAT 99
== END 2022-03-07 12:50 | disposition home or self-care (01) ==
PROVIDERS: Emergency Provider Nurse Practitioner; PCP Family Medicine
DX: K08.89 Other specified disorders of teeth and supporting structures (principal); E11.9 Type 2 diabetes mellitus without complications; K21.9 Gastro-esophageal reflux disease without esophagitis
CPT/HCPCS: 99213; G0463

== ENCOUNTER 2022-04-01 13:25 | Emergency (ER) | payer OTHER, SELFPAY ==
--- NOTE | ~2022-04-01 | XR_ITS ---
XR lumbar spine 2-3V 04/01/2022 13:58 Indication: Low back pain Procedure: 3 views lumbar spine Comparison: No prior studies for comparison. Findings: There is disc narrowing at L2-3 through L5-S1. There is mild lower lumbar facet hypertrophy . Lateral view is limited by obliquity. No acute fracture or traumatic malalignment. No evidence for spondylolisthesis. Normal lumbar lordosis. Pedicles intact. Sacral foramen are symmetric. Impression: 1: Mild-moderate lumbar spondylosis. Reviewed, dictated and finalized at location B. ACCOUNTANT Impression: 1: Mild-moderate lumbar spondylosis.
[2022-04-01 13:33] VITALS: BP 141/101; PULSE 103; RESP 16; TEMP 36.7; O2SAT 98
--- NOTE | 2022-04-01 13:35 | ED.LOWEXIN ---
HPI - Extremity Injury (Lower) General Chief Complaint: Extremity Injury, Lower Stated Complaint: Right Knee Pain Time Seen by Provider: 04/01/22 13:40 Source: patient Mode of arrival: ambulatory Limitations: no limitations History of Present Illness HPI Narrative: Pati is a 51-year-old female patient presenting to clinic today with complaints of low back pain with radiation of pain down her right leg. She reports that she has had these similar symptoms many many years ago however nothing with the past several years. Feels as though her right leg is weaker than her left leg. States she has been applying icy Hot to the affected area and this has helped her sleep at night. She has also taken some ibuprofen and Tylenol for the pain as well. Currently rates her pain 10 at 10 currently. She denies taking any medications today states she has a sharp shooting burning pain radiating into her leg. She denies any loss of bowel or bladder. She denies any saddle anesthesia. Related Data Home Medications Medication Instructions Recorded Confirmed atorvastatin 20 mg tablet 20 mg PO DAILY 07/19/19 04/01/22 cholecalciferol (vitamin D3) 25 25 mcg PO DAILY 07/19/19 04/01/22 mcg (1,000 unit) tablet lisinopril 40 mg tablet 40 mg PO DAILY 07/19/19 04/01/22 furosemide 20 mg tablet 1 tablet PO DAILY 07/23/21 04/01/22 nateglinide 120 mg tablet 1 tablet PO TID 07/23/21 04/01/22 Allergies Allergy/AdvReac Type Severity Reaction Status Date / Time meloxicam Allergy Intermediate mouth dry Verified 04/01/22 13:37 and stomach pain metformin Allergy Intermediate dry mouth Verified 04/01/22 13:37 and stomach pain levofloxacin Allergy Mild Swelling Verified 04/01/22 13:37 latex Allergy Unknown Redness of Verified 04/01/22 13:37 Skin Penicillins Allergy Unknown Swelling Verified 04/01/22 13:37 Quinolones AdvReac Mild Swelling Verified 04/01/22 13:37 Review of Systems Review of Systems: Pertinent positives per HPI. Patient denies any fever, chills, rash, headache, visual changes, dizziness, cough, shortness of breath, chest pain, palpitations, nausea, vomiting, diarrhea, constipation, abdominal pain, or any urinary issues. [facility] Past Medical History Medical History Back pain Diabetes GERD (gastroesophageal reflux disease) Family History Family History Other Diabetes mellitus Social History Social History Smoking status: Never smoker Second hand tobacco smoke exposure: No Alcohol intake: former Substance use: never Gender identity (if verbalized by the patient): Female Comments At the time of my signature, I reviewed and agree with the nursing past medical, surgical, social, and family history. There is no relevant family history pertinent to the patient complaint. Exam Narrative: General: Well-developed, well nourished, in no apparent distress Head: Normocephalic, atraumatic. Cardio: Regular rate and rhythm, s1 and s2 normal, no murmur appreciated. Resp: Clear to auscultation bilaterally, no rhonchi, rales, wheezing or rubs. Musculoskeletal: No deformity, tender to palpation over L4-L5 with pain radiating into the right hip, right thigh, and right lower leg, grossly normal range of motion, bilateral upper and lower muscle strength strong and equal, peripheral pulse strong, no edema, no cyanosis, normal gait and station Course Course Emergency Course: Portions of this record may have been created with voice recognition software. Level of Care: Express Care Visit Vital Signs Vital signs: Vital Signs Temperature 36.7 C 04/01/22 13:33 Pulse Rate 103 H 04/01/22 13:33 Respiratory Rate 16 04/01/22 13:33 Blood Pressure 141/101 H 04/01/22 13:33 Pulse Oximetry 98 04/01/22 13:33 Oxygen D
[2022-04-01] MEDS: KETOROLAC (*BKC) 60 MG/2 ML VIAL IM (13:54)
[2022-04-01 14:24] VITALS: BP 135/89; PULSE 97
== END 2022-04-01 14:24 | disposition home or self-care (01) ==
PROVIDERS: Emergency Provider Nurse Practitioner Family; PCP Family Medicine
DX: M54.16 Radiculopathy, lumbar region (principal); M54.31 Sciatica, right side; E11.9 Type 2 diabetes mellitus without complications; K21.9 Gastro-esophageal reflux disease without esophagitis
CPT/HCPCS: 72100; 96372; 99213; G0463; J1885

== ENCOUNTER 2022-05-25 13:16 | Emergency (ER) | payer OTHER, SELFPAY ==
--- NOTE | 2022-05-25 13:23 | ED.URI ---
HPI - URI/Sore Throat General Chief Complaint: Upper Respiratory Infection Stated Complaint: bilateral ear pain,sorethroat Time Seen by Provider: 05/25/22 13:23 Source: patient Mode of arrival: ambulatory Limitations: no limitations History of Present Illness HPI Narrative: Katlyn is a 51-year-old female patient presenting to the clinic today with complaints of bilateral ear pain, nasal congestion, and sore throat x 3 days. She denies any known fever or chills. She denies any known exposure to anybody with COVID, flu, or strep. MD elicited complaint: cough, sore throat, nasal congestion and other (Bilateral ear pain) Related Data Home Medications Medication Instructions Recorded Confirmed atorvastatin 20 mg tablet 20 mg PO DAILY 07/19/19 05/25/22 cholecalciferol (vitamin D3) 25 25 mcg PO DAILY 07/19/19 05/25/22 mcg (1,000 unit) tablet lisinopril 40 mg tablet 40 mg PO DAILY 07/19/19 05/25/22 furosemide 20 mg tablet 1 tablet PO DAILY 07/23/21 05/25/22 nateglinide 120 mg tablet 1 tablet PO TID 07/23/21 05/25/22 Allergies Allergy/AdvReac Type Severity Reaction Status Date / Time meloxicam Allergy Intermediate mouth dry Verified 05/25/22 13:35 and stomach pain metformin Allergy Intermediate dry mouth Verified 05/25/22 13:35 and stomach pain levofloxacin Allergy Mild Swelling Verified 05/25/22 13:35 latex Allergy Unknown Redness of Verified 05/25/22 13:35 Skin Penicillins Allergy Unknown Swelling Verified 05/25/22 13:35 Quinolones AdvReac Mild Swelling Verified 05/25/22 13:35 Review of Systems Review of Systems: Pertinent positives per HPI. Patient denies any fever, chills, rash, headache, visual changes, dizziness, cough, shortness of breath, chest pain, palpitations, nausea, vomiting, diarrhea, constipation, abdominal pain, or any urinary issues. [facility] Past Medical History Medical History Back pain Diabetes GERD (gastroesophageal reflux disease) Family History Family History Other Diabetes mellitus Social History Social History Smoking status: Never smoker Second hand tobacco smoke exposure: No Alcohol intake: former Substance use: never Gender identity (if verbalized by the patient): Female Comments At the time of my signature, I reviewed and agree with the nursing past medical, surgical, social, and family history. There is no relevant family history pertinent to the patient complaint. Exam Narrative: General: Well-developed, obese, in no apparent distress Head: Normocephalic, atraumatic Eyes: Pupils equally round and reactive to light bilaterally, EOM intact, sclera and conjunctive clear, no discharge, lids normal Ears: TMs intact and clear, ear canals clear, no drainage, grossly hearing normal. Nose: Nares patent, clear discharge, no inflammation, no sinus tenderness. Mouth: Oral pharynx without lesions or masses, good dentition, MMM. Postnasal drip Neck: Supple, trachea midline, no enlargement of anterior or posterior cervical nodes, no thyroid masses or goiter palpable. Cardio: Regular rate and rhythm, s1 and s2 normal, no murmur appreciated. Resp: Clear to auscultation bilaterally, no rhonchi, rales, wheezing or rubs Course Course Emergency Course: Portions of this record may have been created with voice recognition software. Level of Care: Express Care Visit Vital Signs Vital signs: Vital signs reviewed MDM - URI/Sore Throat MDM Narrative Medical decision making narrative: At the time of visit patient is resting comfortably on the exam table. Strep screen was negative in the clinic today. I suspect the patient has upper respiratory infection, eustachian tube dysfunction, and pharyngitis. Prescription for prednisone was sent to the pharmacy. S
[2022-05-25 13:35] VITALS: BP 127/79; PULSE 108; RESP 20; TEMP 37.1; O2SAT 98
== END 2022-05-25 13:46 | disposition home or self-care (01) ==
PROVIDERS: Emergency Provider Nurse Practitioner Family; PCP Family Medicine
DX: H69.93 Unspecified Eustachian tube disorder, bilateral (principal); J02.9 Acute pharyngitis, unspecified; E11.9 Type 2 diabetes mellitus without complications
CPT/HCPCS: 87081; 87880; 99213; G0463

== ENCOUNTER 2022-07-31 22:08 | Emergency (ER) | payer OTHER, SELFPAY ==
--- NOTE | ~2022-07-31 | XR_ITS ---
EXAM: XR wrist RT min 3V, XR forearm RT 2V, XR hand RT min 3V DATE: 07/31/2022 22:33 (accession [id number]), 07/31/2022 22:34 (accession [id number]), 07/31 22:33 (accession [id number]) HISTORY: Fall, R wrist pain. Distal forearm pain. Hx previous fx to wrist . COMPARISON: None available. FINDINGS: Decreased mineralization. Old ulnar styloid fracture. No acute fracture or dislocation. No lytic or blastic lesion. Mild scattered degenerative change. No erosion or periosteal change. Soft t issues within normal limits. IMPRESSION: No acute osseous finding in the right hand, wrist, or forearm. Reviewed, dictated and finalized at location K. IMPRESSION: No acute osseous finding in the right hand, wrist, or forearm. IMPRESSION: No acute osseous finding in the right hand, wrist, or forearm.
[2022-07-31 22:16] VITALS: BP 139/88; PULSE 99; RESP 16; TEMP 36.6; O2SAT 100
[2022-07-31 23:25] VITALS: BP 126/77; PULSE 99; RESP 16; O2SAT 98
--- NOTE | 2022-08-01 01:07 | PC.NURSE ---
Pt witnessed ambulating out of department with steady gait. When asked pt if she was leaving pt became agitated and yelled You guys couldn't even get a doctor to come in and see me! Pt ambulated out of the waiting area.
== END 2022-08-01 01:11 | disposition left against medical advice (07) ==
LOC: ANHED 23:33
PROVIDERS: Emergency Provider Emergency Medicine; PCP Family Medicine
DX: S69.91XA Unspecified injury of right wrist, hand and finger(s), initial encounter (principal); W19.XXXA Unspecified fall, initial encounter
CPT/HCPCS: 73090; 73110; 73130; 99199

== ENCOUNTER 2024-10-11 15:27 | Emergency (ER) | payer OTHER, SELFPAY ==
--- NOTE | ~2024-10-11 | XR_ITS ---
EXAMINATION: XR knee RT min 4V DATE: 10/11/2024 16:13 INDICATION: Right knee pain TECHNIQUE: Anteroposterior, 2 oblique and crosstable lateral views of the right knee were obtained COMPARISON: None. FINDINGS: Alignment is normal. No fracture. Small marginal osteophytes in all 3 compartments of the knee. Mild joint space during the medial compartment of the right knee although severity of joint space narrowing can be underestimated on nonweightbearing imaging. No joint effusion/layering lipohemarthrosis. Soft tissues are unremarkable. IMPRESSION: 1. At least mild tricompartmental osteoarthritis at the right knee. No knee joint effusion or acute osseous adenopathy. Reviewed, dictated and finalized at location A. IMPRESSION: 1. At least mild tricompartmental osteoarthritis at the right knee. No knee mp nt effusion or acute osseous adenopathy.
[2024-10-11 15:37] VITALS: BP 132/81; PULSE 102; RESP 20; TEMP 37.2; O2SAT 92
--- NOTE | 2024-10-11 16:05 | ED.GENADULT ---
HPI - General Adult General Chief complaint: Extremity Injury, Lower Stated complaint: right knee pain Source: patient Mode of arrival: ambulatory Limitations: no limitations History of Present Illness HPI narrative: Patient presents for evaluation of right knee pain for the past month. She states she fell and fractured her arm in March of this year. She recently watched camera footage from that fall and her friends had a hard time believing that she was not experiencing pain in the right knee following the fall. About a month ago she developed pain in the right knee without any additional injury. She states the pain is constant feels like a tight rubber band wrapped around the right knee. She rates her pain between 8 and 10/10. She has tried tylenol, ibuprofen and Midol. Midol provided her with some relief, while the other medications did not. Pain radiates distally from the knee. Movement makes her symptoms worse. She is also concerned about ear discomfort bilaterally since the middle of last week. She states she feels like she is in a sauna. Denies any nasal discharge, sore throat, or respiratory symptoms. She was told in the past she needed tympanostomy tubes but did not go forward with it. Related Data Allergies Allergy/AdvReac Type Severity Reaction Status Date / Time meloxicam Allergy Intermediate mouth dry Verified 10/11/24 15:43 and stomach pain metformin Allergy Intermediate dry mouth Verified 10/11/24 15:43 and stomach pain levofloxacin Allergy Mild Swelling Verified 10/11/24 15:43 latex Allergy Unknown Redness of Verified 10/11/24 15:43 Skin Penicillins Allergy Unknown Swelling Verified 10/11/24 15:43 Quinolones AdvReac Mild Swelling Verified 10/11/24 15:43 Review of Systems Review of Systems: CONSTITUTIONAL: Denies fever, chills, or sweats. EYES: Denies visual changes, redness, or discharge. ENT: reports bilateral ear discomfort with sensation that she is in a sauna. Denies rhinorrhea, congestion, sore throat CARDIOVASCULAR: Denies chest pain, palpitations, or edema. RESPIRATORY: Denies cough or dyspnea. GASTROINTESTINAL: Denies abdominal pain, nausea, vomiting, or diarrhea. GENITOURINARY: Denies dysuria or hematuria. SKIN: Denies rash or itching. MUSCULOSKELETAL: reports right knee pain NEUROLOGIC: Denies headache, numbness, dizziness, or weakness. PSYCHIATRIC: Denies anxiety or depression. [facility] Past Medical History Medical History Asthma GERD (gastroesophageal reflux disease) Back pain Diabetes Surgical History Surgical History Surgical history unknown Family History Family History Mother Family history non-contributory Other Diabetes mellitus Social History Social History Smoking status: Never smoker Second hand tobacco smoke exposure: No Alcohol intake: former Substance use: never Gender identity (if verbalized by the patient): Female Exam Narrative: GENERAL: Well-appearing, well-nourished, and in no acute distress. HEAD: Normocephalic, atraumatic. EYES: PERRLA and EOMI. ENT: Nares clear, no rhinorrhea or epistaxis. Mucous membranes moist. Oropharynx without tonsillar hypertrophy exudate or other lesions. Bilateral TMs are erythematous and bulging NECK: Supple. No adenopathy or masses. No carotid bruits or JVD CHEST: Clear to auscultation. No respiratory distress. No wheezes rales or rhonchi HEART: Regular rate and rhythm. No murmur heard. Normal peripheral pulses. ABDOMEN: Soft, nontender, nondistended, normal active bowel sounds. EXTREMITIES: There is trace swelling noted to the anterior aspect of the right knee. There is tenderness noted over the lateral aspect of the right knee. Full ROM intact. No deformity. No crepitus. SKIN: Warm, dry, no rash. NEURO: No focal deficits. Alert and oriented x3. PSYCH: Normal mood and affect. Course Course Emergency Course: This is a 54-year-old female who presented for evaluation of your pain and right knee pain. She has evidence of otitis media on exam. X-ray negative for fracture. Provided with Wilfred wrap. She has multiple drug allergies an [id number] agents are not helping. She did indicate that she can take amoxicillin despite penicillin allergy. She states that the only pain medication that works for her is Tylenol with codeine. Will provide her with a script for small qty of this. She should follow up with her PCP and go to the ER for worsening symptoms. Pt in agreement with plan of care. Level of Care: Express Care Visit Vital Signs Vital signs: Vital Signs Temperature 37.2 C 10/11/24 15:37 Pulse Rate 102 H 10/11/24 15:37 Respiratory Rate 10/11/24 15:37 Blood Pressure 132/81 10/11/24 15:37 Pulse Oximetry 10/11/24 15:37 Oxygen Delivery Room Air 10/11/24 15:37 Temperature 37.2 C 10/11/24 15:37 Pulse Rate 102 H 10/11/24 15:37 Respiratory Rate 10/11/24 15:37 Blood Pressure 132/81 10/11/24 15:37 Pulse Oximetry 10/11/24 15:37 Oxygen Delivery Room Air 10/11/24 15:37 Medical Decision Making Vital Signs Vital Signs: Vital Signs Temperature 37.2 C 10/11/24 15:37 Pulse Rate 102 H 10/11/24 15:37 Respiratory Rate 10/11/24 15:37 Blood Pressure 132/81 10/11/24 15:37 Pulse Oximetry 10/11/24 15:37 Oxygen Delivery Room Air 10/11/24 15:37 Temperature 37.2 C 10/11/24 15:37 Pulse Rate 102 H 10/11/24 15:37 Respiratory Rate 10/11/24 15:37 Blood Pressure 132/81 10/11/24 15:37 Pulse Oximetry 10/11/24 15:37 Oxygen Delivery Room Air 10/11/24 15:37 Lab Data Labs: Lab Results 10/11/24 Range/Units 16:16 POC Capillary Glucose 244 H (65-105) mg/dl Imaging Data Radiologist's impression: EXAMINATION: XR knee RT min 4V DATE: 10/11/2024 16:13 INDICATION: Right knee pain TECHNIQUE: Anteroposterior, 2 oblique and crosstable lateral views of the right knee were obtained COMPARISON: None. FINDINGS: Alignment is normal. No fracture. Small marginal osteophytes in all 3 compartments of the knee. Mild joint space during the medial compartment of the right knee although severity of joint space narrowing can be underestimated on nonweightbearing imaging. No joint effusion/layering lipohemarthrosis. Soft tissues are unremarkable. IMPRESSION: 1. At least mild tricompartmental osteoarthritis at the right knee. No knee joint effusion or acute osseous adenopathy. Discharge Plan Discharge Clinical Impression: Muscle strain of right knee, Otitis media Patient Disposition: Home Condition: Stable Instructions: Antibiotic Form, Muscle Strain (DC), Ear Infection (ED) Patient Language: Albanian Prescriptions: New amoxicillin-pot clavulanate 875-125 mg tablet 1 tablet PO Q12H Qty: 20 0RF acetaminophen-codeine 300-30 mg tablet 1 tablet PO Q6H PRN (Reason: pain) Qty: 15 0RF Follow-up/Referrals: Hayde,Stew Kingston MD [Primary Care Provider] Time of Disposition: 16:40
== END 2024-10-11 16:48 | disposition home or self-care (01) ==
PROVIDERS: Emergency Provider Nurse Practitioner; PCP Internal Medicine
DX: S86.911A Strain of unspecified muscle(s) and tendon(s) at lower leg level, right leg, initial encounter (principal); X58.XXXA Exposure to other specified factors, initial encounter; H66.93 Otitis media, unspecified, bilateral; E11.9 Type 2 diabetes mellitus without complications; K21.9 Gastro-esophageal reflux disease without esophagitis; J45.909 Unspecified asthma, uncomplicated
CPT/HCPCS: 73564; 82948; 99213; G0463